=== PATIENT | male | born 1960 | race Caucasian/White ===

== ENCOUNTER 2023-03-02 21:36 | Emergency (ER) | payer MEDICARE ==
[2023-03-02 21:52] VITALS: TEMP 98.5
--- NOTE | 2023-03-02 22:51 | ED ---
General Adult HPI - General Chief complaint: GI Bleed Stated complaint: Vomiting Blood Time Seen by Provider: 03/02/23 21:39 Source: EMS Mode of arrival: EMS - History of Present Illness Initial comments: 63-year-old man with past medical history of ischemic cardiomyopathy, LVAD, type II diabetic, status post trach who presents to the emergency department with some oropharyngeal bleeding. was suctioning the patient at home when she noted some clots in the suction canister. She called the LVAD emergency line who recommended that the patient be evaluated in the emergency department. The patient arrives and has no complaints. He is nonverbal however able to convey t hat he does not have any symptoms. He does have notable dried blood in his naris. EMS gave him a 500 fluid bolus. They did have low automatic blood pressures. No report of any rectal bleeding. He is on Coumadin. states he did not get his nighttime medications. Patient recently just discharged from [facility] 3 days ago. - Related Data Allergies Allergy/AdvReac Type Severity Reaction Status Date / Time No Known Allergies Allergy Verified 03/02/23 22:40 Review of Systems ROS Statement: Those systems with pertinent positive or pertinent negative responses have been documented in the HPI. ROS Other: All systems not noted in ROS Statement are negative. Past Medical History Additional Past Medical History / Comment(s): LVAD General Exam Limitations: physical limitation General appearance: lethargic Head exam: Present: atraumatic, normocephalic, normal inspection ENT exam: Present: other (Copious oral secretions which are clear in color. Dried blood in bilateral nares. Small clot of blood and posterior pharynx) Neck exam: Present: other (Stitch right lateral neck with no signs of infection. Previous trach site clean and dry.). Absent: tenderness, meningismus, lymphadenopathy Respiratory exam: Present: normal lung sounds bilaterally. Absent: respiratory distress, wheezes, rales, rhonchi, stridor Cardiovascular Exam: Present: regular rate, normal rhythm, other (LVAD auscultated) GI/Abdominal exam: Present: soft, normal bowel sounds, other (PEG tube in place. Surrounding area clean and dry). Absent: distended, tenderness, guarding, rebound, rigid Extremities exam: Present: other (Soft foods bilateral feet) Neurological exam: Present: alert Psychiatric exam: Present: flat affect Course Vital Signs 03/02/23 03/02/23 03/03/23 21:40 21:51 00:15 Temperature 98.5 F Pulse Rate 92 95 Respiratory 20 22 Rate O2 Sat by Pulse 95 99 Oximetry EKG Findings - EKG Comments: EKG Findings:: EKG demonstrates a regular rhythm with a rate of 99. QRS 106. QTC of 359. Significant baseline artifact Medical Decision Making - Medical Decision Making Was pt. sent in by a medical professional or institution (, RICHARD, SEARCH ENGINEER, urgent care, hospital, or penitentiary...) When possible be specific @ -LVAD nurse Did you speak to anyone other than the patient for history (EMS, parent, family, police, friend...)? What history was obtained from this source @ - Did you review nursing and triage notes (agree or disagree)? Why? @ -I reviewed and agree with nursing and triage notes Were old charts reviewed (outside hosp., previous admission, EMS record, old EKG, old radiological studies, urgent care reports/EKG's, penitentiary records)? Report findings @ - old charts were reviewed from patients recent HF hospitalization Differential Diagnosis (chest pain, altered mental status, abdominal pain women, abdominal pain men, vaginal bleeding, weakness, fever, dyspnea, syncope, heada jose l, dizziness, GI bleed, back pain, seizure, CVA, palpatations, mental health, musculoskeletal)? @ -sepsis, DC, epistaxis, LVAD related bleeding, hemoptysis, PE EKG interpreted by me (3pts min.). @ -As above X-rays interpreted by me (1pt min.). @ -yes CT interpreted by me (1pt min.). @ -None done U/S interpreted by me (1pt. min.). @ -None done What testing was considered but not performed or refused? (CT, X-rays, U/S, labs)? Why? @ -None What meds were considered but not given or refused? Why? @ -None Did you discuss the management of the patient with other professionals (professionals i.e. RICHARD Morales, SEARCH ENGINEER, lab, RT, psych nurse, social service worker, rugby league footballer, teacher, community resource officer, case monitor)? Give summary @ -Dr. Lopez at [facility] Was smoking cessation discussed for >3mins.? @ -No Was critical care preformed (if so, how long)? @ -35 minutes for multiple evaluations, consult with the LVAD team and special consideration needed for LVAD device Were there social determinants of health that impacted care today? How? (Homelessness, low income, unemployed, alcoholism, drug addiction, transportation, low edu. Level, literacy, decrease access to med. care, long-term, rehab)? @ -No Was there de-escalation of care discussed even if they declined (Discuss DNR or withdrawal of care, Hospice)? DNR status @ -Patient is DNR status What co-morbidities impacted this encounter? (DM, HTN, Smoking, COPD, CAD, Cancer, CVA, ARF, Chemo, Hep., AIDS, mental health diagnosis, sleep apnea, morbid obesity)? @ -cadiomyopathy with LVAD Was patient admitted / discharged? Hospital course, mention meds given and route, prescriptions, significant lab abnormalities, going to OR and other pertinent info. @ -Upon arrival patient is placed into room 1. A thorough history and physical exam was performed. We did obtain manual blood pressure with a map of 48. Laboratory studies are conducted and reviewed. Hemoglobin 8.9. INR subtherapeutic at 1.7. Glucose is 66. He is given a half amp of dextrose and does come up to 105. BUN 43. Troponin 0.052. Chest x-ray demonstrates no signs of volume overload. We did repeat his manual blood pressure checks several times. It does improve to 58 however does drop down to 52 again. I did call and speak to the LVAD line. Called and spoke with [facility]. Patient will be accepted as a transfer due to low blood pressures. Patient will be transferred on gentle fluids. Accepting physician is Dr. Lopez. Family was agreeable to transfer and is transferred in stable condition Undiagnosed new problem with uncertain prognosis? @ -yes Drug Therapy requiring intensive monitoring for toxicity (Heparin, Nitro, Insulin, Cardizem)? @ -No Were any procedures done? @ -No Diagnosis/symptom? @ -acute hypotension, epistaxis, hypoglycemia, subtheraputic INR, cardiomyopathy with LVAD Acute, or Chronic, or Acute on Chronic? @ -acute Uncomplicated (without systemic symptoms) or Complicated (systemic symptoms)? @ -complicated Side effects of treatment? @ -volume overload Exacerbation, Progression, or Severe Exacerbation? @ -no Poses a threat to life or bodily function? How? (Chest pain, USA, DC, pneumonia, PE, COPD, DKA, ARF, appy, cholecystitis, CVA, Diverticulitis, Homicidal, Suicidal, threat to staff... and all critical care pts) @ -yes - Lab Data Result diagrams: 03/02/23 22:08 03/02/23 22:08 Lab Results 03/02/23 03/02/23 03/02/23 Range/Units 22:08 22:08 22:08 WBC 8.8 (3.8-10.6) k/uL RBC 2.74 L (4.30-5.90) m/uL Hgb 8.9 L (13.0-17.5) gm/dL Hct 26.4 L (39.0-53.0) % MCV 96.2 (80.0-100.0) fL MCH 32.5 (25.0-35.0) pg MCHC 33.8 (31.0-37.0) g/dL RDW 16.8 H (11.5-15.5) % Plt Count 247 (150-450) k/uL MPV 7.8 Neutrophils % 83 % Lymphocytes % 7 % Monocytes % 6 % Eosinophils % 2 % Basophils % 0 % Neutrophils # 7.3 (1.3-7.7) k/uL Lymphocytes # 0.6 L (1.0-4.8) k/uL Monocytes # 0.5 (0-1.0) k/uL Eosinophils # 0.2 (0-0.7) k/uL Basophils # 0.0 (0-0.2) k/uL Poikilocytosis Slight Anisocytosis Slight Haptoglobin (31.2-198.0) mg/dL PT 17.1 H (9.0-12.0) sec INR 1.7 H (<1.2) APTT 28.2 (22.0-30.0) sec Fibrinogen 402 (200-500) mg/dL Sodium 131 L (137-145) mmol/L Potassium 4.3 (3.5-5.1) mmol/L Chloride 96 L (98-107) mmol/L Carbon Dioxide 28 (22-30) mmol/L Anion Gap 7 mmol/L BUN 43 H (9-20) mg/dL Creatinine 1.21 (0.66-1.25) mg/dL Est GFR (CKD-EPI)AfAm 74 (>60 ml/min/1.73 sqM) Est GFR (CKD-EPI)NonAf 64 (>60 ml/min/1.73 sqM) Glucose 66 L (74-99) mg/dL POC Glucose (mg/dL) (70-110) mg/dL POC Glu Employment Advisor ID Calcium 8.7 (8.4-10.2) mg/dL Total Bilirubin 0.3 (0.2-1.3) mg/dL AST 38 (17-59) U/L ALT 27 (4-49) U/L Alkaline Phosphatase 91 (38-126) U/L Lactate Dehydrogenase 203 (120-246) U/L Troponin I (0.000-0.034) ng/mL Total Protein 5.8 L (6.3-8.2) g/dL Albumin 3.1 L (3.5-5.0) g/dL 03/02/23 03/02/23 03/03/23 Range/Units 22:08 22:08 00:41 WBC (3.8-10.6) k/uL RBC (4.30-5.90) m/uL Hgb (13.0-17.5) gm/dL Hct (39.0-53.0) % MCV (80.0-100.0) fL MCH (25.0-35.0) pg MCHC (31.0-37.0) g/dL RDW (11.5-15.5) % Plt Count (150-450) k/uL MPV Neutrophils % % Lymphocytes % % Monocytes % % Eosinophils % % Basophils % % Neutrophils # (1.3-7.7) k/uL Lymphocytes # (1.0-4.8) k/uL Monocytes # (0-1.0) k/uL Eosinophils # (0-0.7) k/uL Basophils # (0-0.2) k/uL Poikilocytosis Anisocytosis Haptoglobin 247.0 H (31.2-198.0) mg/dL PT (9.0-12.0) sec INR (<1.2) APTT (22.0-30.0) sec Fibrinogen (200-500) mg/dL Sodium (137-145) mmol/L Potassium (3.5-5.1) mmol/L Chloride (98-107) mmol/L Carbon Dioxide (22-30) mmol/L Anion Gap mmol/L BUN (9-20) mg/dL Creatinine (0.66-1.25) mg/dL Est GFR (CKD-EPI)AfAm (>60 ml/min/1.73 sqM) Est GFR (CKD-EPI)NonAf (>60 ml/min/1.73 sqM) Glucose (74-99) mg/dL POC Glucose (mg/dL) 65 L (70-110) mg/dL POC Glu Employment Advisor ID [place] Calcium (8.4-10.2) mg/dL Total Bilirubin (0.2-1.3) mg/dL AST (17-59) U/L ALT (4-49) U/L Alkaline Phosphatase (38-126) U/L Lactate Dehydrogenase (120-246) U/L Troponin I 0.052 H* (0.000-0.034) ng/mL Total Protein (6.3-8.2) g/dL Albumin (3.5-5.0) g/dL 03/03/23 Range/Units 01:08 WBC (3.8-10.6) k/uL RBC (4.30-5.90) m/uL Hgb (13.0-17.5) gm/dL Hct (39.0-53.0) % MCV (80.0-100.0) fL MCH (25.0-35.0) pg MCHC (31.0-37.0) g/dL RDW (11.5-15.5) % Plt Count (150-450) k/uL MPV Neutrophils % % Lymphocytes % % Monocytes % % Eosinophils % % Basophils % % Neutrophils # (1.3-7.7) k/uL Lymphocytes # (1.0-4.8) k/uL Monocytes # (0-1.0) k/uL Eosinophils # (0-0.7) k/uL Basophils # (0-0.2) k/uL Poikilocytosis Anisocytosis Haptoglobin (31.2-198.0) mg/dL PT (9.0-12.0) sec INR (<1.2) APTT (22.0-30.0) sec Fibrinogen (200-500) mg/dL Sodium (137-145) mmol/L Potassium (3.5-5.1) mmol/L Chloride (98-107) mmol/L Carbon Dioxide (22-30) mmol/L Anion Gap mmol/L BUN (9-20) mg/dL Creatinine (0.66-1.25) mg/dL Est GFR (CKD-EPI)AfAm (>60 ml/min/1.73 sqM) Est GFR (CKD-EPI)NonAf (>60 ml/min/1.73 sqM) Glucose (74-99) mg/dL POC Glucose (mg/dL) 105 (70-110) mg/dL POC Glu Employment Advisor ID [place] Calcium (8.4-10.2) mg/dL Total Bilirubin (0.2-1.3) mg/dL AST (17-59) U/L ALT (4-49) U/L Alkaline Phosphatase (38-126) U/L Lactate Dehydrogenase (120-246) U/L Troponin I (0.000-0.034) ng/mL Total Protein (6.3-8.2) g/dL Albumin (3.5-5.0) g/dL Critical Care Time Critical Care Time: Yes Critical Care Time: 35 minutes Disposition Clinical Impression: Epistaxis, LVAD (left ventricular assist device) present, Hypotension, Hypoglycemia Disposition: OTHER INSTITUTION NOT DEFINED Condition: Serious Is patient prescribed a controlled substance at d/c from ED?: No Referrals: Gerardo Angeles MD [Primary Care Provider] - 1-2 days Time of Disposition: 02:06 - Out of Hospital Transfer - Req. Specs Out of Hospital Transfer - Requested Specifics: Other Non-Acute ([facility])
[2023-03-02 22:52] LABS: Anisocytosis Slight; Basophils % (A) 0 %; Eosinophils # (A) 0.2 k/uL (0-0.7); Eosinophils % (A) 2 %; HCT 26.4 % (39.0-53.0); HGB 8.9 gm/dL (13.0-17.5); Lymphocytes # (A) 0.6 k/uL (1.0-4.8); Lymphocytes % (A) 7 %; MCH 32.5 pg (25.0-35.0); MCHC 33.8 g/dL (31.0-37.0); MCV 96.2 fL (80.0-100.0); Mean Platelet Volume 7.8; Monocytes # (A) 0.5 k/uL (0-1.0); Monocytes % (A) 6 %; Neutrophils # (A) 7.3 k/uL (1.3-7.7); Neutrophils % (A) 83 %; Platelet Count 247 k/uL (150-450); Poikilocytosis Slight; RBC 2.74 m/uL (4.30-5.90); RDW 16.8 % (11.5-15.5); WBC 8.8 k/uL (3.8-10.6)
[2023-03-02] MEDS ORDERED: SODIUM CHLORIDE 0.9% 500 ML 250 ML IV ONE (22:57)
[2023-03-02 23:02] LABS: Albumin 3.1 g/dL (3.5-5.0); Calcium 8.7 mg/dL (8.4-10.2); Potassium 4.3 mmol/L (3.5-5.1); Total Bilirubin 0.3 mg/dL (0.2-1.3); Total Protein 5.8 g/dL (6.3-8.2)
--- NOTE | 2023-03-02 23:09 | XR ---
EXAMINATION TYPE: XR chest 2V DATE OF EXAM: 03/02/2023 10:59 PM COMPARISON: None TECHNIQUE: XR chest 2V Frontal and lateral views of the chest. CLINICAL INDICATION:Male, 63 years old with history of pain; FINDINGS: Lungs/Pleura: Low lung volumes are present. There is no evidence of pleural effusion, focal consolida tion, or pneumothorax. Pulmonary vascularity: Unremarkable. Heart/mediastinum: Cardiomediastinal silhouette is unremarkable. Single-lead cardiac conduction devic e overlying the left hemithorax with lead projecting over the right ventricle. Left ventricular margaret t device is present, Drive line appears intact. Musculoskeletal: No acute osseous pathology. IMPRESSION: Low lung volumes with cardiomegaly, no obvious heart failure identified.
[2023-03-02 23:24] LABS: INR 1.7 (<1.2); Partial Thromboplastin Time 28.2 sec (22.0-30.0); Prothrombin Time 17.1 sec (9.0-12.0)
[2023-03-03 00:17] VITALS: PULSE 95; RESP 22
[2023-03-03] MEDS ORDERED: DEXTROSE 50% SYRINGE 50 ML IVP STA (00:30)
[2023-03-03 00:43] LABS: Glucose,Whole Blood 65 mg/dL (70-110)
[2023-03-03 01:09] LABS: Glucose,Whole Blood 105 mg/dL (70-110)
[2023-03-03] MEDS ORDERED: SODIUM CHLORIDE 0.9% 1,000 ML IV SCH (02:15)
== END 2023-03-03 02:23 | disposition other institution (70) ==
LOC: EC 21:36
DX: I95.9 Hypotension, unspecified (principal); E11.649 Type 2 diabetes mellitus with hypoglycemia without coma; R04.0 Epistaxis; Z95.811 Presence of heart assist device
CPT/HCPCS: 36415; 71046; 80053; 83010; 83615; 84484; 85025; 85384; 85610; 85730; 93005; 96374; 99291